=== PATIENT | female | born 1985 | race African-American/Black ===

== ENCOUNTER 2020-06-27 06:34 | Outpatient (REF) | payer OTHER, SELFPAY | END 2020-06-27 06:35 | disposition home or self-care (01) | LOC: HO.LAB 06:34 | PROVIDERS: Visit Provider Internal Medicine | DX: Z20.828 Contact with and (suspected) exposure to other viral communicable diseases (principal) | CPT/HCPCS: C9803; U0003 ==

== ENCOUNTER 2021-02-05 21:46 | Emergency (ER) | payer OTHER, SELFPAY ==
--- NOTE | ~2021-02-05 | XR_ITS ---
EXAMINATION: XR HIP, RIGHT CLINICAL INFORMATION: Pain COMPARISON: None TECHNIQUE: Two views of the right hip. FINDINGS: No acute fracture or dislocation. Bilateral os acetabuli, more pronounced on the right with adjacent labral calcifications. Femoral heads are spherical. Alignment is anatomic. Hip joint space is maintained. XR/XR hip RT min 2V IMPRESSION: No acute findings.
[2021-02-05 21:48] VITALS: BP 120/79; PULSE 88; RESP 18; TEMP 36.9; O2SAT 100; BMI 38.7
--- NOTE | 2021-02-06 00:16 | ED_ITS ---
HPI - General Adult General Chief complaint: Extremity Injury, Lower Stated complaint: hip pain Time Seen by Provider: 02/06/21 00:14 Source: patient Mode of arrival: ambulatory Limitations: no limitations History of Present Illness HPI narrative: 35-year-old female came in for evaluation of right hip/lower extremities pain. Pain started 3 days ago, patient declined any trauma or fall or injury to the right hip. Pain started at the right hip radiates down to the thigh described as throbbing shooting pain, movement make it worse, with partial improvement with ibuprofen, no associated other symptoms. Patient has no previous similar pain in the past. Related Data Allergies Allergy/AdvReac Type Severity Reaction Status Date / Time No Known Allergies Allergy Verified 02/05/21 21:53 Review of Systems Review of Systems: All other systems are reviewed and are negative Constitutional: Reports as per HPI and Reports no additional constitutional complaints Eyes: Reports as per HPI and Reports no additional eye complaints Reports system reviewed and no additional complaints, except as documented Cardiovascular: Reports as per HPI and Reports no additional cardiovascular complaints Respiratory: Reports as per HPI and Reports no additional respiratory complaints Gastrointestinal: Reports as per HPI and Reports no additional gastrointestinal complaints Genitourinary: Reports no additional female genitourinary complaints Musculoskeletal: Reports no additional musculoskeletal complaints Skin/Breast: Reports system reviewed and no additional complaints, except as docu Psychiatric: Reports no additional psychiatric complaints Endocrine: Reports no additional endocrine complaints Hematologic/Lymphatic: Reports no additional hematologic/lymphatic complaints Allergic/Immunologic: Reports no additional allergic/immunologic complaints Reports system reviewed and no additional complaints, except as documented and Reports Abnormal speech present FOR[facility] Past Medical History Medical History Hypothyroidism Surgical History S/P thyroid biopsy Social History Social History Advance Directives: No Advance Directives Information Provided: No Patient : No Physical Exam Vital Signs: Vital Signs: Last Vital Signs Temp 98.4 F 02/05/21 21:48 Pulse 88 02/05/21 21:48 Resp 18 02/05/21 21:48 BP 120/79 02/05/21 21:48 Pulse Ox 100 02/05/21 21:48 Body Mass Index 38.7 Vital signs have been reviewed as appeared to be correct. Blood pressure normal. Heart rate normal. Respiration rate normal. Temperature normal. Oxygen saturation normal. Appearance: Alert. Oriented X3. No acute distress. Head: Normal external exam. Normocephalic. Atraumatic. No Pepper signs noted. No raccoon eyes noted Eyes: PERRLA. EOMI. Conjunctiva and sclera normal. Eyelids normal. ENT: TM's Normal. Pharynx normal. Uvula midline. Moist mucous membranes. No trismus noted. No drooling noted. No muffled voice noted. Neck: Normal inspection. Neck supple. FROM. No adenopathy. Thyroid Normal. No meningeal signs. No neck mass noted. CVS: Normal heart rate and rhythm. Heart sound normal. No murmurs noted. Pulses normal throughout. Respiratory: No respiratory distress. Painless inspiration. Breath sounds normal. No wheezes/rales/rhonchi noted. Chest nontender. No accessory muscle usage noted or decreased air movement noted. Abdomen: Soft and nontender. Bowel sounds normal in all 4 quadrants. No distention noted. No organomegaly noted. No visible injury noted. Back: No CVA tenderness. Full range of motion noted. Skin: Skin warm and dry. Normal skin color. Normal skin turgor. No rashes/lesions/lacerations noted. Extremities: Right hip exam: No tenderness, no deformity. Neuro: Oriented X 3. No motor deficit. No sensory deficit. Reflexes normal. Course Course Course Narrative: Assessment and plan. Right hip pain likely related to sciatica. As discussed with the patient to rest, follow-up with PCP, will prescribe oxycodone. No neurological deficit at this point patient can be safely discharged and follow-up with PCP. Medical Decision Making Imaging Data Right hip x-ray: Radiologist's impression: No acute pathology.
[2021-02-06] MEDS: Ibuprofen 600 MG TABLET PO (00:45)
[2021-02-06] MEDS: oxyCODONE HCl Immed Release 5 MG TABLET PO (00:45)
--- NOTE | 2021-02-06 00:46 | PC.NURSE ---
Pt medicated per MAR.
== END 2021-02-06 01:55 | disposition home or self-care (01) ==
PROVIDERS: Emergency Provider Emergency Medicine
DX: M25.551 Pain in right hip (principal)
CPT/HCPCS: 73502; 99283